=== PATIENT | male | born 1970 | race African-American/Black ===

== ENCOUNTER 2023-09-24 16:01 | Emergency (ER) | payer OTHER ==
[~2023-09-24] VITALS: Ht 175.3 cm; Wt 95.3 kg
[2023-09-24 19:05] LABS: BASOPHILS # (AUTO) 0.1 K/UL (0.0-0.2); BASOPHILS % (AUTO) 0.6 % (0.0-2.0); EOSINOPHILS # (AUTO) 0.4 K/uL (0.0-0.7); EOSINOPHILS % (AUTO) 4.4 % (0.0-7.0); HEMATOCRIT 43.8 % (36.7-47.1); HEMOGLOBIN 14.4 g/dL (12.5-16.3); LYMPHOCYTES # (AUTO) 2.3 K/uL (0.8-4.8); LYMPHOCYTES % (AUTO) 25.4 % (20.5-51.5); MEAN CORPUSCULAR HEMOGLOBIN 29.4 uug (23.8-33.4); MEAN CORPUSCULAR HGB CONC 33 g/dL (32.5-36.3); MEAN CORPUSCULAR VOLUME 89.7 fL (73.0-96.2); MONOCYTES # (AUTO) 0.8 K/uL (0.1-1.30); MONOCYTES % (AUTO) 9.2 % (0.0-11.0); NEUTROPHILS # (AUTO) 5.5 K/uL (1.8-8.9); NEUTROPHILS % (AUTO) 60.4 % (38.5-71.5); PLATELET COUNT (AUTO) 241 K/uL (152-348); RED BLOOD CELL COUNT(AUTO) 4.89 MIL/uL (4.06-5.63); RED CELL DISTRIBUTION WIDTH 13.9 % (12.1-16.2); WHITE BLOOD COUNT (AUTO) 9.2 K/uL (3.6-10.2)
[2023-09-24 19:11] LABS: DIFFERENTIAL COMMENT 1
[2023-09-24 19:27] LABS: ALANINE AMINOTRANSFERASE 17 U/L (16-63); ALBUMIN 2.9 g/dL (3.4-5.0); ALKALINE PHOSPHATASE 76 U/L (50-136); ASPARTATE AMINOTRANSFERASE 26 U/L (15-37); BILIRUBIN,DIRECT 0.1 mg/dL (0.0-0.2); BILIRUBIN,TOTAL 0.6 mg/dL (0.2-1.0); CALCIUM 9.3 mg/dL (8.5-10.1); CARBON DIOXIDE 25 mmol/L (21-32); CHLORIDE 104 mmol/L (98-107); CREATININE 1.6 mg/dL (0.6-1.3); GLUCOSE 97 mg/dL (74-106); NT-PRO BNP 1324 pg/mL (0-125); SODIUM SERUM 140 mmol/L (136-145); TOTAL PROTEIN, SERUM 8.2 g/dL (6.4-8.2); UREA NITROGEN, BLOOD 14 mg/dL (7-18)
[2023-09-24 19:43] LABS: POTASSIUM 4.2 mmol/L (3.5-5.1)
[2023-09-24] MEDS ORDERED: IV NORMAL SALINE 250 ML IV ONE (19:52)
[2023-09-24] MEDS ORDERED: SWABABLE VALVE TRANSFER SET EA MC ONE (19:52)
[2023-09-24] MEDS ORDERED: IOHEXOL 350 100 ML INFUS..BTL ONE (19:52)
[2023-09-24] MEDS ORDERED: GUAI5SYR PO (23:19)
[2023-09-24] MEDS ORDERED: ALBU18HF2 INH (23:19)
[2023-09-24] MEDS ORDERED: METH4TAB21 GT (23:19)
[2023-09-24 23:38] VITALS: BP 138/92; TEMP 97.5; O2SAT 100
== END 2023-09-24 23:39 | disposition home or self-care (01) ==
LOC: ER 16:47
DX: J20.9 Acute bronchitis, unspecified (principal); R05.9 Cough, unspecified; R07.89 Other chest pain; R03.0 Elevated blood-pressure reading, without diagnosis of hypertension; Z79.899 Other long term (current) drug therapy; Z20.822 Contact with and (suspected) exposure to COVID-19
CPT/HCPCS: 99284; 71275; 71046; 87426; 80076; 80048; 83880; 85025; 85379; 84484; 36415; 93005; Q9967; A4606; A4663